=== PATIENT | female | born 1955 | race Caucasian/White ===

== ENCOUNTER 2024-01-14 08:26 | Day surgery (SDC) | payer BC ==
[~2024-01-14] VITALS: Ht 167.6 cm; Wt 66.7 kg
[2024-01-14 10:21] LABS: INR 1.4 (0.8-1.2)
[2024-01-14 10:32] LABS: BASOPHILS % (AUTO) 0.4 % (0.0-2.0); EOSINOPHILS # (AUTO) 0.1 K/uL (0.0-0.4); EOSINOPHILS % (AUTO) 1.2 % (0.0-4.0); HEMOGLOBIN 7.4 g/dL (12.0-16.0); LYMPHOCYTES # (AUTO) 1.6 K/uL (1.0-5.5); LYMPHOCYTES % (AUTO) 36.2 % (20.5-51.5); MEAN CORPUSCULAR HEMOGLOBIN 32 pg (27-31); MEAN CORPUSCULAR HGB CONC 34 % (32-36); MEAN CORPUSCULAR VOLUME 95 fL (79.0-98.0); MONOCYTES # (AUTO) 0.9 K/uL (0.0-1.0); MONOCYTES % (AUTO) 20.7 % (1.7-9.3); NEUTROPHILS # (AUTO) 1.9 K/uL (1.8-7.7); NEUTROPHILS % (AUTO) 41.5 % (40.0-70.0); PLATELET COUNT (AUTO) 74 K/uL (130-430); RED BLOOD CELL COUNT(AUTO) 2.31 MIL/uL (4.2-6.2); WHITE BLOOD COUNT (AUTO) 4.5 K/uL (4.8-10.8)
[2024-01-14 10:51] LABS: PROTHROMBIN TIME 14.4 SECS (9.5-12.5)
[2024-01-14 11:30] VITALS: O2SAT 95
[2024-01-14 16:45] VITALS: BP_SYST 157; PULSE 75; RESP 20; TEMP 99.5
== END 2024-01-14 13:45 | disposition home or self-care (01) ==
LOC: SDS 08:26 → SMU 08:27 → SDS 13:45
PROVIDERS: ATTEND Radiology Vascular & Interventional Radiology
DX: R18.8 Other ascites (principal); I10 Essential (primary) hypertension; E11.9 Type 2 diabetes mellitus without complications; M19.90 Unspecified osteoarthritis, unspecified site; Z91.048 Other nonmedicinal substance allergy status; Z85.3 Personal history of malignant neoplasm of breast; Z92.21 Personal history of antineoplastic chemotherapy
CPT/HCPCS: 49083; 85025; 85610; 85730; 36415; 82948; 88108; C1729

== ENCOUNTER 2024-01-26 12:03 | Day surgery (SDC) | payer BC ==
[~2024-01-26] VITALS: Ht 167.6 cm; Wt 66.7 kg
[2024-01-26 15:24] VITALS: BP_SYST 151; PULSE 67; RESP 15; TEMP 98.4
== END 2024-01-26 15:10 | disposition home or self-care (01) ==
LOC: SRD 12:03 → SMU 12:04 → SRD 15:10
PROVIDERS: ATTEND Radiology Diagnostic Radiology
DX: R18.8 Other ascites (principal); I10 Essential (primary) hypertension; E11.9 Type 2 diabetes mellitus without complications; Z79.899 Other long term (current) drug therapy; Z85.3 Personal history of malignant neoplasm of breast
CPT/HCPCS: 49083; 82948; C1729

== ENCOUNTER 2024-02-11 12:17 | Day surgery (SDC) | payer BC ==
[~2024-02-11] VITALS: Ht 167.6 cm; Wt 66.2 kg
[2024-02-11 14:21] VITALS: O2SAT 100
[2024-02-11 14:22] LABS: INR 1.7 (0.8-1.2); PROTHROMBIN TIME 17.1 SECS (9.5-12.5)
[2024-02-11 17:33] VITALS: BP_SYST 155; PULSE 64; RESP 20; TEMP 98.4
== END 2024-02-11 15:32 | disposition home or self-care (01) ==
LOC: SRD 12:17 → SMU 12:19 → SRD 15:32
PROVIDERS: ATTEND Radiology Diagnostic Radiology
DX: R18.8 Other ascites (principal); Z53.8 Procedure and treatment not carried out for other reasons; I10 Essential (primary) hypertension; Z91.048 Other nonmedicinal substance allergy status; Z98.890 Other specified postprocedural states
CPT/HCPCS: 36415; 76705; 85610; 85730